=== PATIENT | male | born 1995 | race Native Hawaiian/Other Pacific Islander ===

== ENCOUNTER 2017-01-04 12:00 | Emergency (ER) | payer BC ==
[~2017-01-04] VITALS: Ht 180.3 cm; Wt 90.7 kg
[~2017-01-04 12:00] MED LIST: ALBUTEROL0.09 MG/A2 INH; ALBUTEROL0.09 MG/AC INH; CATAFLAM50 MG PO; CLARITIN10 MG PO; FLONASE ALLERG9.9 ML NAS; MOTRIN400 MG PO; PREDNICOT10 MG PO; PREDNISONE10 MG PO; PREDNISONE20 MG PO; PRILOSEC20 MG PO; ROBITUSSIN AC 110 ML PO; ROBITUSSIN DM 105 ML PO; TESSALON PERLE100 M1 PO; XOPENEX1.25 MG/0. IH; ZITHROMAX Z PA250 MG PO; ZOFRAN4 MG PO; ZYRTEC10 MG PO
[2017-01-04 12:17] VITALS: BP 133/85
[2017-01-04] MEDS ORDERED: BACTRIM DS 8001 TA1 PO (12:25)
[2017-01-04] MEDS ORDERED: KEFLEX500 M1 PO (12:25)
[2017-01-04] MEDS ORDERED: NAPROSYN500 MG PO (12:25)
== END 2017-01-04 14:09 | disposition home or self-care (01) ==
LOC: ED 12:00
DX: N49.2 Inflammatory disorders of scrotum (principal); R03.0 Elevated blood-pressure reading, without diagnosis of hypertension; F17.200 Nicotine dependence, unspecified, uncomplicated

== ENCOUNTER 2017-02-06 18:02 | Emergency (ER) | payer BC ==
[~2017-02-06] VITALS: Ht 175.2 cm; Wt 90.7 kg
[~2017-02-06 18:02] MED LIST changes: +BACTRIM DS 8001 TA1 PO; +KEFLEX500 M1 PO; +NAPROSYN500 MG PO
[2017-02-06 18:08] VITALS: BP 147/70
[2017-02-06] MEDS ORDERED: CEPHALEXIN500 M1 PO (18:32)
[2017-02-06] MEDS ORDERED: BACTRIM DS 8001 TA1 PO (18:32)
== END 2017-02-06 18:45 | disposition home or self-care (01) ==
LOC: ED 18:02
DX: L02.214 Cutaneous abscess of groin (principal); Z79.899 Other long term (current) drug therapy

== ENCOUNTER 2018-02-05 06:53 | Emergency (ER) | payer OTHER ==
[~2018-02-05] VITALS: Ht 175.2 cm; Wt 85.3 kg
[~2018-02-05 06:53] MED LIST changes: +CEPHALEXIN500 M1 PO
[2018-02-05 06:56] VITALS: BP 121/78
[2018-02-05 07:26] LABS: BASO % 0.2 % (0.0-1.0); EOS # 0.1 10*3/uL (0.0-0.4); EOS % 2.1 % (1.0-4.0); HEMATOCRIT 44.6 % (42.0-52.0); HEMOGLOBIN 15.4 g/dl (14.0-18.0); LYMPH # 1.7 10*3/uL (1.3-4.4); LYMPH % 35.8 % (27.0-41.0); MEAN CELL VOLUME 94.7 fl (80.0-94.0); MEAN CORPUSCULAR HGB 32.7 pg (27.0-31.0); MEAN CORPUSCULAR HGB CONC 34.5 g/dl (33.0-37.0); MEAN PLATELET VOLUME 11.1 fl (9.6-12.3); MONO # 0.5 10*3/uL (0.1-1.0); MONO % 10.8 % (3.0-9.0); NEUT # 2.5 10*3/uL (2.3-7.9); NEUT % 50.9 % (47.0-73.0); PLATELET COUNT AUTOMATED 137 10*3/uL (130-400); RED BLOOD COUNT 4.71 10*6/uL (4.50-5.90); RED CELL DISTRI WIDTH 11.9 % (0-14.5); WHITE BLOOD COUNT 4.8 10*3/uL (4.8-10.8)
[2018-02-05 07:42] LABS: ALBUMIN 3.8 gm/dl (3.1-4.5); ALKALINE PHOSPHATASE 66 U/L (45-117); BUN 14 mg/dl (7-24); CHLORIDE 110 mmol/L (98-107); CREATININE 0.89 mg/dL (0.70-1.30); POTASSIUM 4.2 mmol/L (3.5-5.1); SGOT/AST 11 IU/L (3-35); SGPT/ALT 26 U/L (12-78); SODIUM 143 mmol/L (136-145); TOTAL PROTEIN 7.3 gm/dL (6.4-8.2)
[2018-02-05] MEDS ORDERED: IMODIUM A-D2 M2 PO (07:53)
== END 2018-02-05 07:56 | disposition home or self-care (01) ==
LOC: ED 06:53
PROVIDERS: Emergency Medicine
DX: R19.7 Diarrhea, unspecified (principal); R10.84 Generalized abdominal pain; R11.2 Nausea with vomiting, unspecified

== ENCOUNTER 2018-05-20 12:55 | Emergency (ER) | payer OTHER ==
[~2018-05-20] VITALS: Ht 180.3 cm; Wt 86.2 kg
[~2018-05-20 12:55] MED LIST changes: +IMODIUM A-D2 M2 PO
[2018-05-20 12:57] VITALS: BP 134/78
[2018-05-20] MEDS ORDERED: AMOXICILLIN500 M2 PO (14:11)
== END 2018-05-20 14:32 | disposition home or self-care (01) ==
LOC: ED 12:55
DX: J02.9 Acute pharyngitis, unspecified (principal); F10.10 Alcohol abuse, uncomplicated

== ENCOUNTER 2022-11-22 22:27 | Emergency (ER) | payer BC ==
[~2022-11-22] VITALS: Ht 180.3 cm; Wt 93.4 kg
[~2022-11-22 22:27] MED LIST changes: +AMOXICILLIN500 M2 PO
[2022-11-23 00:50] VITALS: BP 133/71
== END 2022-11-23 01:14 | disposition short-term general hospital (02) ==
LOC: ED 22:27
DX: S92.355B Nondisplaced fracture of fifth metatarsal bone, left foot, initial encounter for open fracture (principal); W20.8XXA Other cause of strike by thrown, projected or falling object, initial encounter; Y93.89 Activity, other specified; Y92.89 Other specified places as the place of occurrence of the external cause; Y99.8 Other external cause status

== ENCOUNTER 2025-05-14 21:02 | Emergency (ER) | payer BC ==
[~2025-05-14] VITALS: Ht 180.3 cm; Wt 95.3 kg
[2025-05-14 21:16] VITALS: BP 129/81
== END 2025-05-14 22:37 | disposition home or self-care (01) ==
LOC: ED 21:02
DX: S93.601A Unspecified sprain of right foot, initial encounter (principal); X50.1XXA Overexertion from prolonged static or awkward postures, initial encounter; Y93.44 Activity, trampolining; Y92.89 Other specified places as the place of occurrence of the external cause; Y99.8 Other external cause status